=== PATIENT | female | born 1945 | race Caucasian/White ===

== ENCOUNTER 2018-02-17 08:49 | Outpatient (CLI) | payer MEDICARE ==
--- NOTE | 2018-02-17 11:07 | RAD ---
THERE VIEWS LUMBAR SPINE INCLUDING FLEXION AND EXTENSION VIEWS: Date: 02-17-18 History: Chronic low back. FINDINGS: Multilevel degenerative changes are seen throughout the lumbar spine with narrowing of the interverte bral disc spaces at all levels. Multilevel osteophytes are present. Prominent endplate degenerative c hanges at L1-2 level. Facet hypertrophic change is seen at multiple levels, greater in the lower lumb ar spine. There is grade I anterolisthesis of L5 on S1. No definitive abnormal translational motion i s seen, and degree of anterolisthesis measures approximately 6 mm. No additional level of subluxation is seen. The vertebral body heights are within normal limits. Vascular calcifications are seen in th e abdominal aorta. IMPRESSION: 1. Multilevel degenerative changes throughout the lumbar spine. 2. Grade I anterolisthesis or L5 on S1. 3. Vascular calcifications seen in the abdominal aorta. POS: [facility]
--- NOTE | 2018-02-17 11:53 | MRI ---
MRI LUMBAR SPINE WITHOUT CONTRAST: HISTORY: Chronic low back pain. Pain management is not helping. COMPARISON: None. TECHNIQUE: An MRI of the lumbar spine is performed without intravenous Gadolinium administration. Multisequenti al, multiplanar imaging is performed. FINDINGS: Straightening of normal cervical lordosis. There is T1 marrow signal hypointensity with associated T 2 and STIR hyperintensity involving the inferior aspect of L1 and the superior aspect of L3. Type I modic changes are favored. There is no significant STIR hyperintensity to suggest vertebral body abiel ma from fracture. No MRI evidence of a ligamentous injury. Straightening of the normal lumbar lordo sis is presumed to be due to patient position. Symmetric signal intensity of the psoas muscles. Appropriate signal intensity of the visualized sean d organs. The conus medullaris terminates at the inferior aspect of L1. There does appear to be a significant disk bulge/protrusion at the T11-T12 level, incompletely evalua hellen. T12-L1: No significant central canal stenosis. The neural foramina are patent. L1-L2: Desiccation with severe loss of disk space height. Broad-based disk bulge, ligamentum flavum thickening, and facet hypertrophy result in moderate central canal stenosis. The right neural viral en is patent. Moderate to severe left foraminal narrowing. L2-L3: Severe loss of disk space height. Broad-based disk bulge, ligamentum flavum thickening, and facet hypertrophy result in moderate central canal stenosis. Mild right and moderate left foraminal narrowing. L3-L4: Desiccation with severe loss of disk space height. Broad-based disk bulge, ligamentum flavum thickening, and facet hypertrophy result in moderate central canal stenosis. Moderate to severe rig ht and moderate to severe left neural foraminal narrowing. L4-L5: Desiccation with severe loss of disk space height. Broad-based disk bulge, ligamentum flavum thickening, and facet hypertrophy result in mild central canal stenosis. Moderate to severe right a nd mild left foraminal narrowing. L5-S1: Adequate disk hydration. Generalized disk bulge does not cause any significant stenosis of t he thecal sac. There is bilateral facet hypertrophy. The right neural foramen is patent. Mild left neural foraminal narrowing. There is 3.5 mm of anterolisthesis of L5 upon S1. IMPRESSION: Degenerative changes of the lumbar spine, as detailed above. POS: [facility]
== END 2018-02-17 08:50 | disposition home or self-care (01) ==
LOC: SCSMRI 08:49
PROVIDERS: ATTEND Neurological Surgery
DX: M47.26 Other spondylosis with radiculopathy, lumbar region (principal); M43.17 Spondylolisthesis, lumbosacral region; I70.0 Atherosclerosis of aorta
CPT/HCPCS: 72100; 72148

== ENCOUNTER 2018-11-17 10:37 | Inpatient (IN) | payer MEDICARE ==
[2018-11-16 13:41] VITALS: BMI 38.0
--- NOTE | 2018-11-16 20:54 | HP ---
HISTORY OF PRESENT ILLNESS: This is a 73-year-old female who reports to our office for evaluation of back pain. She states that this pain has been around for at least a year and a half when she slipped in the bathtub. She states that she has been more or less under control with physical therapy and injections; however, in the last 3 to 4 months, has been significantly worse and her last injection did not give her any relief. The patient states her pain is worse on the left side of her low back into her gluteal area. She denies radicular symptoms. No numbness or tingling. She states that it is hard for her to stand more than about 5 to 10 minutes without needing to sit or take a break. She states that she uses a shopping cart at the store and finds herself leaning over further and further as she continues shopping. This gives her some relief. When the patient sits, she feels better. She had a course of physical therapy last year. REVIEW OF SYSTEMS: Ten-point review of systems has been completed and is negative other than stated in the above HPI. PAST MEDICAL HISTORY: Hyperlipidemia, hypertension, type 2 diabetes, anxiety, arthritis, allergies, migraine. PAST SURGICAL HISTORY: Hysterectomy, knee replacements, gallbladder removal. FAMILY HISTORY: Father is , diagnosed with diabetes. Mother is , diagnosed with hypertension and cancer. Children are alive. SOCIAL HISTORY: The patient is a nonsmoker. MEDICATIONS: 1. Metformin. 2. Lisinopril. 3. Amlodipine. 4. Gabapentin. 5. Atorvastatin. 6. Fish oil. 7. Fenofibrate. 8. Meloxicam. 9. Vitamin D. 10. Glimepiride. 11. Tramadol. ALLERGIES: KEFLEX, CODEINE, CORTISONE AND NIASPAN. PHYSICAL EXAMINATION: CONSTITUTIONAL: A well-appearing, well-nourished, alert. RESPIRATIONS: Normal work of breathing on room air. NEUROLOGIC: Mental Status; oriented to person, place, and time. Normal attention span and concentration. Speech, spontaneous and fluent. Content appropriate. Normal fund of knowledge. Cranial nerves; grossly intact. Gait and station; gait and station are normal. Motor exam; there is normal strength in iliopsoas, quadriceps, hamstrings, anterior tibialis, EHL, gastroc, and toe flexors. Sensory exam, there is no dermatomal sensory loss in L1, L2, L3, L4, or S1. IMAGING DATA: MRI, stenosis at L1-L2, L2-L3, L3-4, L4-5, mild slip at L5-S1 without much stenosis there. Flexion-extension x-rays stable at L5-S1. ASSESSMENT AND PLAN: Spondylolisthesis, lumbar spinal stenosis with neurogenic claudication. Dr. Barrios has offered surgery, laminectomy L1 through L5 to prevent further neurologic deterioration. The patient states that she understands the risks and is willing to proceed. Job ID: [id number]
[2018-11-17] MEDS ORDERED: Clindamycin/D5W 900 mg/50 ml Premix Bag ONE (11:35)
[2018-11-17] MEDS ORDERED: Levofloxacin 500 mg/D5W 100 ml Premix Bag ONE (11:35)
[2018-11-17] MEDS ORDERED: Bupivacaine HCl 0.5%/Epinephrine 1:200,000/PF 30 ml Vial ONE (12:19)
[2018-11-17] MEDS ORDERED: Sodium Chloride 0.9% 10 ML ONE (12:19)
[2018-11-17] MEDS ORDERED: Thrombin 5000 UNITS/5 ML VIAL ONE (12:19)
[2018-11-17] MEDS ORDERED: Glycopyrrolate 0.2 MG/ML 5 ML SYRINGE ONE (12:53)
[2018-11-17] MEDS ORDERED: Rocuronium Bromide 10 MG/ML (10ML VIAL) ONE (12:53)
[2018-11-17] MEDS ORDERED: Lidocaine 1% PF 5 ML VIAL ONE (12:53)
[2018-11-17] MEDS ORDERED: PHENYLEPHRINE-NS 100 MCG/ML 10 ML SYRINGE ONE (12:53)
[2018-11-17] MEDS ORDERED: PROPOFOL 200 MG/20 ML VIAL ONE (12:53)
[2018-11-17] MEDS ORDERED: Dexamethasone 20 MG/5 ML VIAL ONE (12:53)
[2018-11-17] MEDS ORDERED: Fentanyl 100 MCG/2 ML VIAL ONE ×4 (13:03→19:26)
[2018-11-17] MEDS ORDERED: Phenylephrine HCL 10 MG/ML VIAL ONE (13:10)
[2018-11-17] MEDS ORDERED: Bisacodyl 10 MG SUPP PR PRN (17:12)
[2018-11-17] MEDS ORDERED: Acetaminophen 650 MG Suppository PR PRN (17:12)
[2018-11-17] MEDS ORDERED: Promethazine HCl 25 MG/ML VIAL IM PRN ×2 (17:12→17:30)
[2018-11-17] MEDS ORDERED: traMADol HCl 50 MG TAB PO PRN ×2 (17:12)
[2018-11-17] MEDS ORDERED: tiZANidine HCl 4 MG TAB PO PRN (17:12)
[2018-11-17] MEDS ORDERED: diphenhydrAMINE 50 MG/ML VIAL IVP PRN (17:12)
[2018-11-17] MEDS ORDERED: Acetaminophen 325 MG TAB PO PRN (17:12)
[2018-11-17] MEDS ORDERED: Milk Of Magnesia 30 ML UDCUP PO PRN (17:12)
[2018-11-17] MEDS ORDERED: Morphine 2 MG/ML SYRINGE SLOW IVP PRN (17:12)
[2018-11-17] MEDS ORDERED: Promethazine 25 MG TAB PO PRN (17:12)
[2018-11-17] MEDS ORDERED: SUGAMMADEX SODIUM 200 MG/2 ML VIAL ONE (17:12)
[2018-11-17] MEDS ORDERED: diphenhydrAMINE 25 MG CAP PO PRN (17:12)
[2018-11-17] MEDS ORDERED: Ondansetron PF 4 MG/2 ML Vial IVP PRN (17:12)
[2018-11-17] MEDS ORDERED: Mag-Al 1200 mg/1200 mg/30 ML UDCUP PO PRN (17:12)
[2018-11-17] MEDS ORDERED: HYDROmorphone 2 MG/ML VIAL SLOW IVP PRN (17:30)
[2018-11-17] MEDS ORDERED: Promethazine HCl 25 MG/ML VIAL SLOW IVP PRN (17:30)
[2018-11-17] MEDS ORDERED: Ondansetron HCl/PF 4 MG/2 ML Vial IVP PRN (17:30)
[2018-11-17] MEDS: Clindamycin/D5W 900 MG in Premix Bag 1 BAG IVPB SCH (20:11)
[2018-11-17] MEDS: metFORMIN 500 MG TAB PO SCH (20:11)
[2018-11-17] MEDS: Morphine 4 MG/ML VIAL SLOW IVP PRN ×2 (20:13→23:52)
[2018-11-17] MEDS: Sodium Chloride 0.9% 1,000 ML IV SCH (20:26)
[2018-11-17] MEDS ORDERED: Atorvastatin Calcium 40 MG TAB PO SCH (21:00)
[2018-11-17] MEDS ORDERED: Fenofibrate Nanocrystallized 145 MG TAB PO SCH (21:00)
[2018-11-18] MEDS: Sodium Chloride 0.9% 1,000 ML IV SCH (00:09)
--- NOTE | 2018-11-18 01:01 | OP ---
DATE OF PROCEDURE: 11/17/2018 SILO OPERATOR: Nica Landry PA-C PREOPERATIVE INDICATION: Treat pain and prevent neurological deterioration. PREOPERATIVE DIAGNOSIS: Multilevel lumbar stenosis with severe neurogenic claudication. POSTOPERATIVE DIAGNOSES: Multilevel lumbar stenosis with severe neurogenic claudication and right L2-L3 facet erosion of the dura. PROCEDURES PERFORMED: Decompressive laminectomy, medial facetectomy, foraminotomy, L1-L2, L2-L3, L3-L4, L4-L5; operating microscope; microsurgical repair of dura from bony erosion, right L2-L3. PREOP MEDICATION: Levaquin 500 mg IV and clindamycin 900 mg IV. DRAIN NUMBER: Zero. DRAIN TYPE: None. DESCRIPTION OF PROCEDURE: The patient was brought to the operating room. General endotracheal anesthesia was induced. The patient was positioned prone on gel-filled chest rolls and a lateral fluoro radiograph was used to plan our incision. The lumbar skin was sterilely prepped and draped. We opened with a 10-blade knife and controlled bleeding with bipolar and monopolar cautery. We used monopolar cautery to dissect through subcutaneous tissues to the thoracodorsal fascia. We incised the fascia in the midline and reflected the paraspinal muscles off the spinous process and lamina of L1, L2, L3, L4 and the top of L5. A lateral fluoro radiograph confirmed the levels upon which we were operating. We then used an Adson rongeur to remove the spinous processes of L1 to the top of L5. Using a 3-mm Kerrison rongeur, we fashioned a laminectomy down the midline. We widened our laminectomy defect by performing medial facetectomies and decompressed the lateral recess in the foramen and each of the interspaces. We carefully worked down the right side first and found that the L2-L3 facet joint was overgrown with bone spurs and was densely adherent to the dura. We left this for microsurgical decompression at the end. We moved down the left side and decompressed by performing medial facetectomies and foraminotomies over the exiting nerve roots, and once we had decompressed the lateral recess and foramina at L1-L2, L2-L3, L3-L4, L4-L5 bilaterally, we went back to the L2-L3 facet joint on the right side. The operative microscope was brought into the field. Under microscopic magnification and using microsurgical techniques, we carefully drilled away the medial portion of the facet joint until it was thin enough to use a 2-mm Kerrison rongeur. We disconnected the medial portion of the facet joint from the lateral portion until there was a free-floating piece of bone and osteophyte on the dura. Each time repeat under the bone, we saw arachnoid but no intact dura, the dura was densely adherent to the bone itself. We elected to resect the bone microsurgically with sharp micro scissors, then the dural defect left behind was about 7 mm in the craniocaudal direction, but only 2 to 3 mm in the mediolateral direction. A 6-0 Prolene was brought in the field. Using interrupted 6-0 Prolene sutures, we closed primarily. We administered 3 to 4 different Valsalva maneuvers and saw no CSF egress. We irrigated the entire wound copiously with bacitracin irrigation. We then reinforced our dural closure with DuraSeal tissue sealant. We treated the wound with vancomycin powder and we closed the wound in anatomical layers. We applied a sterile dressing. This was a clean case, no contamination. Job ID: [id number]
[2018-11-18] MEDS ORDERED: HumaLOG 300 UNITS/3 ML VIAL SC PRN ×2 (01:50)
[2018-11-18] MEDS ORDERED: Dextrose 50% Abboject 50 ML SYRINGE SLOW IVP PRN (01:50)
[2018-11-18] MEDS ORDERED: Dextrose 5% in Water 1,000 ML IV PRN (01:50)
--- NOTE | 2018-11-18 02:32 | CON ---
DATE OF CONSULTATION: 11/17/2018 TIME OF ASSESSMENT: 2200 hours. REASON FOR CONSULTATION: Medical management. HISTORY OF PRESENT ILLNESS: Ms. Walden is a 73-year-old woman, who has a history of chronic back pain following a fall within 1 year ago. She has undergone decompressive laminectomy, medial facetectomy, foraminotomy from L1 through L5 done by Dr. Barrios. This was done due to multilevel lumbar stenosis with severe neurogenic claudication. The patient had the procedure done earlier today and has been referred for medical management. She has a known history of hyperlipidemia, hypertension, type 2 diabetes mellitus, and anxiety. The patient states she has some pain in her back, which is to be expected and is finding difficult to stay awake. The patient states she has had the sensation of needing to urinate for the last hour, and states she is falling asleep and forgetting to let her nurse know. The patient also states she is somewhat reluctant and nervous about getting up for the first time, which is partially the reason why she has been waiting. She otherwise feels well and denies any complaints. Denies having any chest pain, palpitations, or shortness of breath. No headaches or dizziness. No abdominal pain or cramping. No nausea or vomiting. Overall, apart from the back pain, she is without any complaints. PAST MEDICAL HISTORY: 1. Hyperlipidemia. 2. Hypertension. 3. Type 2 diabetes mellitus. 4. Anxiety. 5. Arthritis. 6. History of migraines. PAST SURGICAL HISTORY: 1. Hysterectomy. 2. Bilateral knee replacements. 3. Cholecystectomy. 4. Lumbar laminectomy done today as mentioned above. FAMILY HISTORY: Her father is , but had a history of diabetes. Her mother is also and had history of hypertension and cancer. SOCIAL HISTORY: She denies any tobacco use, alcohol consumption, or illicit drug use. ALLERGIES: 1. CEPHALEXIN. 2. CORTISONE. 3. NIASPAN. 4. CODEINE. CURRENT MEDICATIONS: 1. Acetaminophen. 2. Amlodipine. 3. Aspirin. 4. Atorvastatin. 5. Unisom. 6. Estroven. 7. Fenofibrate. 8. Glimepiride. 9. Lisinopril. 10. Melatonin. 11. Metformin. 12. Multivitamin. 13. Tramadol. 14. CoQ10. PHYSICAL EXAMINATION: GENERAL: The patient appears well developed, well nourished, is in no acute distress. VITAL SIGNS: Temperature 98.7, pulse 93, respirations 20, O2 saturation 92% on room air, and blood pressure 164/76. HEENT: Normocephalic and atraumatic. Pupils are equal, round, reactive to light. Sclerae without icterus. Oropharynx is clear. NECK: Supple. LUNGS: Clear to auscultation bilaterally. CARDIAC: Regular rate and rhythm. ABDOMEN: Soft, nontender, nondistended. Normoactive bowel sounds present. EXTREMITIES: No lower leg swelling or edema. NEUROLOGIC: Alert and oriented x3. SKIN: Without rash or jaundice. INVESTIGATIONS: None. IMPRESSION AND PLAN: Ms. Walden is a very pleasant 73-year-old woman with lumbar spondylolisthesis and stenosis of the lumbar spine with neurogenic claudication, who was offered lumbar laminectomy as mentioned above. She had the procedure earlier today without any complications. She does have some mild discomfort and was just given morphine. She feels the need to urinate, but is nervous about getting up, therefore did not notify her nurse. I have notified her nurse, who will assist her, in getting out of bed. The patient is otherwise feeling very well without complaints. Blood pressure repeated in the 140 systolic. Her home medications have been reconciled. She has a she does have a history of diabetes mellitus. We have initiated an insulin sliding scale, and we will monitor blood glucose. We will obtain laboratory studies requested for the morning. Thank you for this consultation. We will continue to follow the patient with you. The patient's case was discussed with attending, who agrees upon care as described above. Job ID: [id number]
[2018-11-18] MEDS: Morphine 4 MG/ML VIAL SLOW IVP PRN (04:11)
[2018-11-18] MEDS: Clindamycin/D5W 900 MG in Premix Bag 1 BAG IVPB SCH (04:11)
[2018-11-18 05:11] LABS: #Lymphocytes 1.4 thou/uL (1.20-3.40); #Monocytes 1.3 thou/uL (0.11-0.59); #Neutrophils 7.4 thou/uL (1.40-6.50); %Basophils 0.2 % (0.0-1.0); %Eosinophils 0.2 % (0.0-10.0); %Monocytes 12.3 % (0.0-10.0); %Neutrophils 73.3 % (42.0-75.0); Hemoglobin 10.1 g/dL (12.0-16.0); Mean Corpuscular HGB CONC 32.7 g/dL (32.0-36.0); Mean Corpuscular Hemoglobin 28.2 pg (27.0-31.0); Mean Corpuscular Volume 86.1 fL (78.0-98.0); Mean Platelet Volume 7.7 fL (7.4-10.4); Platelet Count 367 thou/uL (130-400); RBC Distribution Width 13.9 % (11.5-14.5); Red Blood Cell (RBC) Count 3.57 mill/uL (4.20-5.40); White Blood Cell (WBC) Count 10.2 thou/uL (4.8-10.8)
[2018-11-18 05:24] LABS: Anion Gap 10 mmol/L (10-20); BUN (Urea Nitrogen) 13 mg/dL (9.8-20.1); Calc. Creatinine Clearance 67 mL/min (70-130); Calcium 8.8 mg/dL (7.8-10.44); Carbon Dioxide 26 mmol/L (23-31); Chloride 101 mmol/L (98-107); Estimated GFR-MDRD 53; Glucose 117 mg/dL (83-110); Potassium 4.5 mmol/L (3.5-5.1); Sodium 132 mmol/L (136-145)
--- NOTE | 2018-11-18 07:15 | PRG ---
DATE OF SERVICE: 11/18/2018 I saw Ms. Walden in her hospital room this morning. She is 1 day out from a long segment lumbar laminectomy in which dural repair was necessary due to erosion of her dura from an overgrown facet joint. We aimed to keep her flat in bed overnight, but she told me she got out of bed twice overnight and went to the bathroom. She did not get a significant headache and there has been no report of CSF draining. Vitals have been stable. Her neurological examination is reassuring and I think Ms. Walden will be ready for discharge today if she proves to the nurses by lunchtime that she is independent for activities of daily living. We went over home going activity restrictions, followup arrangements and wound care. Job ID: [id number]
[2018-11-18 08:50] VITALS: TEMP 98.6
[2018-11-18] MEDS ORDERED: Lisinopril 20 MG TAB PO SCH (09:00)
[2018-11-18] MEDS ORDERED: Amlodipine 10 MG TAB PO SCH (09:00)
[2018-11-18] MEDS ORDERED: Glimepiride 1 MG TAB PO SCH (09:00)
[2018-11-18] MEDS: metFORMIN 500 MG TAB PO SCH (09:21)
[2018-11-18 12:15] VITALS: BP 145/78
== END 2018-11-18 13:10 | disposition home or self-care (01) | DRG 520 ==
LOC: SDC 10:37 → SURG B 18:02
PROVIDERS: ADMIT Neurological Surgery; ATTEND Neurological Surgery
PROC: 00QT0ZZ Repair Spinal Meninges, Open Approach (ICD-10-PCS; principal; 2018-11-17)
PROC: 01NB0ZZ Release Lumbar Nerve, Open Approach (ICD-10-PCS; 2018-11-17)
PROC: 0QB00ZZ Excision of Lumbar Vertebra, Open Approach (ICD-10-PCS; 2018-11-17)
DX: M48.062 Spinal stenosis, lumbar region with neurogenic claudication (principal); M43.16 Spondylolisthesis, lumbar region; E78.5 Hyperlipidemia, unspecified; E11.9 Type 2 diabetes mellitus without complications; F41.9 Anxiety disorder, unspecified; M19.90 Unspecified osteoarthritis, unspecified site; G96.19 Other disorders of meninges, not elsewhere classified; Z96.653 Presence of artificial knee joint, bilateral; Z90.710 Acquired absence of both cervix and uterus; Z90.49 Acquired absence of other specified parts of digestive tract; Z88.5 Allergy status to narcotic agent; Z88.8 Allergy status to other drugs, medicaments and biological substances; I10 Essential (primary) hypertension; G43.909 Migraine, unspecified, not intractable, without status migrainosus
CPT/HCPCS: 36415; 36416; 76000; 80048; 85025; 93005; 93010; J0670; J1956; J2270; J2370; J2405; J3010; J3370; J3490

== ENCOUNTER 2018-11-19 07:21 | Inpatient (IN) | payer MEDICARE ==
[2018-11-19] MEDS ORDERED: Ondansetron PF 4 MG/2 ML Vial ONE (07:52)
[2018-11-19] MEDS ORDERED: Morphine 4 MG/ML VIAL ONE (07:52)
--- NOTE | 2018-11-19 07:56 | RAD ---
EXAM: Portable chest PROVIDED CLINICAL HISTORY: Fever COMPARISON: None FINDINGS: Cardiac and mediastinal silhouette is within normal limits. No focal consolidation, pleural fluid or pneumothorax evident. IMPRESSION: No evidence for an acute cardiopulmonary process.
[2018-11-19 08:01] LABS: #Eosinphils 0.3 thou/uL (0.0-0.7); #Lymphocytes 1.1 thou/uL (1.20-3.40); #Monocytes 1.4 thou/uL (0.11-0.59); #Neutrophils 8.1 thou/uL (1.40-6.50); %Basophils 0.4 % (0.0-1.0); %Eosinophils 2.4 % (0.0-10.0); %Lymphocytes 10.3 % (21.0-51.0); %Monocytes 12.8 % (0.0-10.0); %Neutrophils 74.1 % (42.0-75.0); Hemoglobin 10.7 g/dL (12.0-16.0); Mean Corpuscular HGB CONC 33.4 g/dL (32.0-36.0); Mean Corpuscular Volume 83.8 fL (78.0-98.0); Mean Platelet Volume 7.4 fL (7.4-10.4); Platelet Count 337 thou/uL (130-400); RBC Distribution Width 13.9 % (11.5-14.5); Red Blood Cell (RBC) Count 3.81 mill/uL (4.20-5.40)
[2018-11-19 08:26] LABS: ALT (SGPT) 19 U/L (8-55); AST (SGOT) 19 U/L (5-34); Albumin 4.2 g/dL (3.4-4.8); Alkaline Phosphatase 43 U/L (40-150); Anion Gap 12 mmol/L (10-20); BUN (Urea Nitrogen) 13 mg/dL (9.8-20.1); Bilirubin, Total 0.5 mg/dL (0.2-1.2); Calc. Creatinine Clearance 0 mL/min (70-130); Calcium 9.3 mg/dL (7.8-10.44); Carbon Dioxide 22 mmol/L (23-31); Chloride 99 mmol/L (98-107); Estimated GFR-MDRD 58; Globulin 2.2 g/dL (2.4-3.5); Glucose 127 mg/dL (83-110); Potassium 4.1 mmol/L (3.5-5.1); Protein, Total 6.4 g/dL (6.0-8.3); Sodium 129 mmol/L (136-145)
[2018-11-19] MEDS ORDERED: Metoclopramide HCl 10 MG/2 ML VIAL ONE (08:51)
[2018-11-19] MEDS ORDERED: Mag-Al 1200 mg/1200 mg/30 ML UDCUP PO PRN (09:15)
[2018-11-19] MEDS ORDERED: HYDROcodone/Acetaminophen 10/325 mg Tablet PO PRN (09:15)
[2018-11-19] MEDS ORDERED: tiZANidine HCl 4 MG TAB PO PRN (09:15)
[2018-11-19] MEDS ORDERED: Promethazine 25 MG TAB PO PRN (09:15)
[2018-11-19] MEDS ORDERED: Acetaminophen 325 MG TAB PO PRN ×2 (09:15→12:50)
[2018-11-19] MEDS ORDERED: Milk Of Magnesia 30 ML UDCUP PO PRN (09:15)
[2018-11-19] MEDS ORDERED: Promethazine HCl 25 MG/ML VIAL IM PRN (09:15)
[2018-11-19] MEDS ORDERED: traMADol HCl 50 MG TAB PO PRN ×2 (09:15→12:49)
[2018-11-19] MEDS ORDERED: Ondansetron PF 4 MG/2 ML Vial IVP PRN (09:15)
[2018-11-19] MEDS ORDERED: diphenhydrAMINE 50 MG/ML VIAL ONE (09:17)
[2018-11-19] MEDS ORDERED: Fentanyl 100 MCG/2 ML VIAL ONE (10:16)
[2018-11-19] MEDS: HYDROcodone/Acetaminophen 10/325 mg Tablet PO PRN ×3 (11:48→20:10)
[2018-11-19] MEDS: Sodium Chloride 0.9% 1,000 ML IV SCH (11:50)
[2018-11-19 11:59] VITALS: BMI 42.2
[2018-11-19] MEDS ORDERED: hydrALAZINE 20 MG/ML VIAL SLOW IVP PRN (12:42)
[2018-11-19] MEDS ORDERED: Dextrose 50% Abboject 50 ML SYRINGE SLOW IVP PRN (12:43)
[2018-11-19] MEDS ORDERED: Dextrose 5% in Water 1,000 ML IV PRN (12:43)
[2018-11-19] MEDS ORDERED: Amlodipine 10 MG TAB PO SCH (12:45)
[2018-11-19] MEDS ORDERED: Lisinopril 20 MG TAB PO SCH ×2 (12:45→21:00)
--- NOTE | 2018-11-19 12:46 | PDOC.HOSPP ---
- Subjective Encounter Date: 11/19/18 Encounter Time: 12:44 Subjective: Patient seen and examined for med mngt. No CP/SOB. Follow Dr Angulo. - Objective Vital Signs & Weight: Vital Signs (12 hours) Temp Pulse Resp BP Pulse Ox 11/19/18 11:16 98.3 F 103 H 22 H 174/82 H 97 Weight Weight 216 lb 0.848 oz Result Diagrams: 11/19/18 07:54 11/19/18 07:54 Hospitalist ROS - Review of Systems Respiratory: denies: cough, dry, shortness of breath, hemoptysis, SOB with excertion, pleuritic pain, sputum, wheezing, other Cardiovascular: denies: chest pain, palpitations, orthopnea, paroxysmal noc. dyspnea, edema, light headedness, other - Medication Medications: Active Medications Generic Name Dose Route Start Last Admin Trade Name Freq PRN Reason Stop Dose Admin Hydrocodone Bitart/Acetaminophen 2 tab 11/19/18 09:15 11/19/18 11:48 [place] 10/325 PO 2 tab Q4H PRN Administration Moderate Pain (4-6) Sodium Chloride 1,000 mls @ 75 mls/hr 11/19/18 09:15 11/19/18 11:50 Normal Saline 0.9% IV 1,000 mls .[id number] CHANI Administration - Exam General - other findings: Pt in distress due to back pain Neck: supple, no JVD Heart: RRR, no gallops, no rubs Respiratory: CTAB, no rales Gastrointestinal: soft, non-tender, non-distended, normal bowel sounds Extremities: no edema Psychiatric: normal affect, A&O x 3 Hosp A/P (1) Hyponatremia Code(s): E87.1 - HYPO-OSMOLALITY AND HYPONATREMIA Status: Acute (2) HTN (hypertension) Code(s): I10 - ESSENTIAL (PRIMARY) HYPERTENSION Status: Acute (3) HLD (hyperlipidemia) Code(s): E78.5 - HYPERLIPIDEMIA, UNSPECIFIED Status: Acute (4) DM2 (diabetes mellitus, type 2) Status: Acute (5) Morbid obesity with BMI of 40.0-44.9, adult Code(s): E66.01 - MORBID (SEVERE) OBESITY DUE TO EXCESS CALORIES; Z68.41 - BODY MASS INDEX (BMI) 40.0-44.9, ADULT Status: Acute (6) CKD (chronic kidney disease) stage 3, GFR 30-59 ml/min Code(s): N18.3 - CHRONIC KIDNEY DISEASE, STAGE 3 (MODERATE) Status: Chronic - Plan DVT proph w/SCDs Resume Amlodipine/Lisinopril/Statins Hold Metformin/Glimepiride Add sliding scale BMP in AM AM labs Full code. DPOA - family
--- NOTE | 2018-11-19 12:58 | HP ---
HISTORY OF PRESENT ILLNESS: The patient is a 73-year-old female with a past medical history of type 2 diabetes, hypertension, hyperlipidemia, found to have lumbar stenosis, who underwent L1 to L5 laminectomy on 11/17/2018. Following the surgery, she was transitioned to the Med/Surg floor, where her pain was well controlled with p.o. medication, she mobilized appropriately and was then discharged to home yesterday on 11/18/2018. The patient reports over the first day at home, she had progressive increase in her back pain and development of some diffuse left leg pain and new postural headaches. She reports a subjective fever at home. She came to the emergency department for further evaluation of these worsening symptoms. At that time, she was found to be afebrile, but did have a slightly increased white blood cell count. Neurosurgery was consulted for further evaluation and management of the patient. I visited with the patient at the bedside. She reports that her pain is primarily in the back and is making her difficult to ambulate secondary to this pain. She denies any leg weakness, numbness, or bowel or bladder issues. PAST MEDICAL HISTORY: Type 2 diabetes, hypertension, and hyperlipidemia. PAST SURGICAL HISTORY: L1 to L5 laminectomy, bilateral knee surgeries, foot surgery, cholecystectomy, and hysterectomy. SOCIAL HISTORY: The patient lives at home with her . She does not smoke, drink, or use any drugs. ALLERGIES: SHE IS ALLERGIC TO CEPHALEXIN, CODEINE, CORTISONE, NIACIN, AND NIASPAN. REVIEW OF SYSTEMS: Per HPI. PHYSICAL EXAMINATION: GENERAL: The patient is resting comfortably in the bed, in no acute distress. VITAL SIGNS: Blood pressure is 157/68, pulse is 83, respiratory rate is 18, temperature is 98.7, and she is 93% on room air. HEENT: Head; normocephalic, atraumatic. Eyes; PERRLA. Extraocular movements intact. ENT; oral mucosa is pink, intact, and moist. She has normal voice. NECK: Nontender to palpation. Free active range of motion. No meningismus or nuchal rigidity. CARDIAC: Regular rate and rhythm. PULMONARY: Symmetric chest expansion. No evidence of dyspnea. MUSCULOSKELETAL: Free active range of motion of all extremities. No focal motor weakness is appreciated. BACK: Her incision is clean, dry, and intact with no evidence of CSF drainage. NEURO: A and O x4. No focal neurologic deficits are appreciated. ASSESSMENT AND PLAN: This is a 73-year-old female, status post L1 to L5 laminectomy on 11/17/2018. Reviewing Dr. Barrios's notes, there was a small dural tear, which was repaired intraoperatively. The patient has now developed postural headaches. Her incision remains dry and intact with no evidence of CSF drainage. She had reported subjective fever overnight last night, but has been afebrile here. Her white count is slightly elevated and we will continue to monitor with repeat labs. I have also sent a set of blood cultures as well as CRP and sed rate. We will also check urinalysis with culture. Her chest x-ray was negative for any acute process. I have discussed the case with the hospitalist, who will assist with medical management of this patient and will be admitted to the Med/Surg for her further management. Job ID: [id number]
[2018-11-19 15:06] LABS: Bacteria/HPF None Seen HPF (None Seen); Bilirubin Negative (Negative); Blood, Urine Negative (Negative); Clarity Clear (Clear); Glucose, Urine (Dipstick) Normal (Negative); Leukocyte 25 Leu/uL (Negative); Nitrite Negative (Negative); Protein, Urine (Dipstick) Negative (Neg-Trace); RBC/HPF 0-3 HPF (0-3); Squamous Epithelial 0-3 HPF (0-3); Urobilinogen Normal mg/dL (Less than 2)
[2018-11-19 15:10] LABS: Urine Culture Reflex Yes Yes
[2018-11-19] MEDS: Morphine 2 MG/ML SYRINGE SLOW IVP PRN ×3 (15:11→19:31)
[2018-11-19] MEDS: tiZANidine HCl 4 MG TAB PO PRN (19:31)
[2018-11-19] MEDS: Atorvastatin Calcium 40 MG TAB PO SCH (19:31)
[2018-11-19] MEDS: Senokot S 8.6-50 MG TAB PO SCH (19:31)
[2018-11-20] MEDS: Sodium Chloride 0.9% 1,000 ML IV SCH ×2 (01:22→12:37)
[2018-11-20] MEDS: HYDROcodone/Acetaminophen 10/325 mg Tablet PO PRN ×3 (01:24→09:31)
[2018-11-20 03:57] LABS: #Eosinphils 0.3 thou/uL (0.0-0.7); #Lymphocytes 1.5 thou/uL (1.20-3.40); #Monocytes 1.3 thou/uL (0.11-0.59); #Neutrophils 8.1 thou/uL (1.40-6.50); %Basophils 0.2 % (0.0-1.0); %Eosinophils 2.8 % (0.0-10.0); %Lymphocytes 13.2 % (21.0-51.0); %Monocytes 11.8 % (0.0-10.0); Hemoglobin 9.8 g/dL (12.0-16.0); Mean Corpuscular HGB CONC 32.7 g/dL (32.0-36.0); Mean Corpuscular Hemoglobin 28.4 pg (27.0-31.0); Mean Corpuscular Volume 86.7 fL (78.0-98.0); Mean Platelet Volume 7.5 fL (7.4-10.4); Platelet Count 326 thou/uL (130-400); RBC Distribution Width 13.9 % (11.5-14.5); Red Blood Cell (RBC) Count 3.45 mill/uL (4.20-5.40); White Blood Cell (WBC) Count 11.2 thou/uL (4.8-10.8)
[2018-11-20 04:13] LABS: Anion Gap 10 mmol/L (10-20); BUN (Urea Nitrogen) 11 mg/dL (9.8-20.1); Calc. Creatinine Clearance 86 mL/min (70-130); Calcium 8.8 mg/dL (7.8-10.44); Carbon Dioxide 22 mmol/L (23-31); Chloride 103 mmol/L (98-107); Estimated GFR-MDRD 63; Glucose 119 mg/dL (83-110); Magnesium 1.6 mg/dL (1.6-2.6); Potassium 4.1 mmol/L (3.5-5.1); Sodium 131 mmol/L (136-145)
[2018-11-20] MEDS: Morphine 2 MG/ML SYRINGE SLOW IVP PRN ×4 (07:34→13:17)
[2018-11-20] MEDS: Amlodipine 10 MG TAB PO SCH (07:48)
[2018-11-20] MEDS: tiZANidine HCl 4 MG TAB PO PRN (07:48)
[2018-11-20] MEDS: Multivit, Therapeutic 1 TAB PO SCH (07:49)
[2018-11-20] MEDS: Lisinopril 20 MG TAB PO SCH (07:49)
[2018-11-20] MEDS: Senokot S 8.6-50 MG TAB PO SCH ×2 (07:52→20:52)
[2018-11-20] MEDS: Ubidecarenone 50 MG CAP PO SCH (07:52)
[2018-11-20] MEDS ORDERED: Magnesium 2 GM/50 ML 2 GM in Premix Bag 1 BAG IVPB SCH (11:15)
--- NOTE | 2018-11-20 12:55 | PDOC.HOSPP ---
- Subjective Encounter Date: 11/20/18 Encounter Time: 11:00 Subjective: Patient seen and examined for med mngt. Back pain +. No new complaints. No overnight events - Objective Vital Signs & Weight: Vital Signs (12 hours) Temp Pulse Resp BP BP Pulse Ox 11/20/18 08:00 99 11/20/18 07:54 98.2 F 82 162/84 H 99 11/20/18 07:49 162/84 H 11/20/18 07:48 82 162/84 H 11/20/18 03:20 98.4 F 82 16 145/77 H 99 Weight Weight 216 lb 0.848 oz I&O: 11/19/18 11/20/18 11/21/18 06:59 06:59 06:59 Intake Total 900 Balance 900 Result Diagrams: 11/20/18 03:30 11/20/18 03:30 Additional Labs: Accuchecks 11/20/18 11/20/18 11/19/18 11:33 05:26 20:13 POC Glucose 105 117 H 135 H 11/19/18 15:55 POC Glucose 140 H Hospitalist ROS - Review of Systems Respiratory: denies: cough, dry, shortness of breath, hemoptysis, SOB with excertion, pleuritic pain, sputum, wheezing, other Cardiovascular: denies: chest pain, palpitations, orthopnea, paroxysmal noc. dyspnea, edema, light headedness, other - Medication Medications: Active Medications Generic Name Dose Route Start Last Admin Trade Name Freq PRN Reason Stop Dose Admin Hydrocodone Bitart/Acetaminophen 2 tab 11/19/18 09:15 11/20/18 09:31 [place] 10/325 PO 2 tab Q4H PRN Administration Moderate Pain (4-6) Amlodipine Besylate 10 mg 11/20/18 09:00 11/20/18 07:48 Norvasc PO 10 mg DAILY CHANI Administration Atorvastatin Calcium 40 mg 11/19/18 21:00 11/19/18 19:31 Lipitor PO 40 mg HS CHANI Administration Coenzyme Q10 200 mg 11/20/18 09:00 11/20/18 07:52 Coenzyme Q10 PO Not Given DAILY CHANI Magnesium Sulfate 2 gm/ Device 50 mls @ 50 mls/hr 11/20/18 11:15 11/20/18 12: 30 IVPB 11/20/18 13:15 50 mls NOW CHANI Administration Sodium Chloride 1,000 mls @ 40 mls/hr 11/20/18 11:15 11/20/18 12:37 Normal Saline 0.9% IV 1,000 mls .Q24H CHANI Administration Lisinopril 20 mg 11/20/18 09:00 11/20/18 07:49 Zestril PO 20 mg DAILY CHANI Administration Morphine Sulfate 2 mg 11/19/18 09:15 11/20/18 12:28 Morphine SLOW IVP 2 mg Q1H PRN Administration Moderate Breakthrough Pain Multivitamins 1 tab 11/20/18 09:00 11/20/18 07:49 Theragran PO Not Given DAILY CHANI Senna/Docusate Sodium 1 tab 11/19/18 21:00 11/20/18 07:52 Senokot S PO Not Given BID CHANI Tizanidine HCl 4 mg 11/19/18 12:49 11/20/18 07:48 Zanaflex PO 4 mg TID PRN Administration Muscle Spasm - Exam General - other findings: Pt in distress due to pain Heart: RRR, no rubs Respiratory: CTAB, no rales, no ronchi Gastrointestinal: soft, non-tender, normal bowel sounds Extremities: no edema Neurological: no new deficit Psychiatric: A&O x 3 Hosp A/P (1) Hyponatremia Code(s): E87.1 - HYPO-OSMOLALITY AND HYPONATREMIA Status: Acute (2) HTN (hypertension) Code(s): I10 - ESSENTIAL (PRIMARY) HYPERTENSION Status: Acute (3) HLD (hyperlipidemia) Code(s): E78.5 - HYPERLIPIDEMIA, UNSPECIFIED Status: Acute (4) DM2 (diabetes mellitus, type 2) Status: Chronic Qualifiers: Chronic kidney disease stage: stage 3 (moderate) (5) Morbid obesity with BMI of 40.0-44.9, adult Code(s): E66.01 - MORBID (SEVERE) OBESITY DUE TO EXCESS CALORIES; Z68.41 - BODY MASS INDEX (BMI) 40.0-44.9, ADULT Status: Acute (6) Hypomagnesemia Code(s): E83.42 - HYPOMAGNESEMIA Status: Acute - Plan plan discussed w/ family Replace Magnessium Sodium improving Resume Amlodipine/Lisinopril/Statins Metformin/Glimepiride on hold - Will resume when tolerating PO well Cont sliding scale
[2018-11-20] MEDS ORDERED: Morphine 2 MG/ML SYRINGE SLOW IVP PRN (13:38)
[2018-11-20] MEDS ORDERED: Morphine 4 MG/ML VIAL SLOW IVP PRN (13:39)
[2018-11-20] MEDS ORDERED: diphenhydrAMINE 50 MG/ML VIAL IM PRN (13:44)
[2018-11-20] MEDS ORDERED: Ondansetron PF 4 MG/2 ML Vial IVP PRN (13:44)
[2018-11-20] MEDS ORDERED: Naloxone HCl 0.4 mg/ml Vial IV PRN (13:44)
[2018-11-20] MEDS ORDERED: Zolpidem Tartrate 5 MG TAB PO PRN (13:44)
[2018-11-20] MEDS ORDERED: diphenhydrAMINE 50 MG/ML VIAL IVP PRN (13:44)
[2018-11-20] MEDS ORDERED: Promethazine HCl 25 MG/ML VIAL IM PRN (13:44)
[2018-11-20] MEDS ORDERED: Communication Order-Pharmacy FS SCH (13:45)
--- NOTE | 2018-11-20 13:52 | PRG ---
DATE OF SERVICE: 11/20/2018 SUBJECTIVE: Ms. Walden is today at the bedside. She continues to complain of severe back pain that is only helped slightly by p.r.n. morphine and [place]. She denies any pain, numbness, or tingling in her legs. She denies any issues with her bowel or bladder. She continues to have constant headache, but this has significantly worsened with sitting or standing. She is unable to stand as well due to severe back pain. Her labs today are white count is 11.2, which appears stable from yesterday. Her urinalysis was negative for evidence of infection, and her chest x-ray was also negative for any acute cardiopulmonary process. The patient is lying. She appears uncomfortable. She is tender around the incision, it is not red, swollen. It is clean, dry, and intact with no evidence of any drainage. She has good range of motion of all extremities. No focal motor weakness is appreciated on my exam. Unfortunately, the patient continues to have severe back pain and postural headache. There continues to be no obvious CSF drainage from her wound. We will plan to consult anesthesia for TECHNICIAN TRAINEE for assistance in management of pain. Physical Therapy is currently at the bedside, working with the patient in the bed. I anticipate possible need for inpatient rehabilitation depending on her progress. Job ID: [id number] MTDD
[2018-11-20] MEDS: fentaNYL Citrate/PF 2,000 MCG in Sodium Chloride 0.9% 60 ML IV PRN (14:35)
[2018-11-20] MEDS: Dexamethasone 4 mg/ml Vial SLOW IVP SCH ×2 (14:56→20:53)
--- NOTE | 2018-11-20 15:51 | PRG ---
DATE OF SERVICE: SUBJECTIVE: The patient is seen and examined. I agree with Nevaeh Mari's evaluation on 11/19/2018. The patient is a 73-year-old woman, who on the underwent L1 through L5 laminectomy and she was discharged on the . Overnight on the and the morning of the , she began to develop significant increase in low back pain as well as postural headache. There was a report of fever at home, but there has been no fever in the hospital. Since admission, the postural headache has improved, but she is complaining of severe back pain. She has no manifestations in the legs and no neurologic abnormalities in the legs. Her wound was inspected and is dry. There is no evidence of distention of the wound. LABORATORY DATA: White count is 11, and she has been afebrile. She is modestly hyponatremic. IMPRESSION AND PLAN: Readmission for postural headache and exacerbation of back pain. We will try to manage this medically. This has been a challenge. We will ask for Anesthesia assistance with this. If things do not improve by tomorrow, she may ultimately require imaging. There are no manifestations of infection at this time. Discussed with the patient and her . Job ID: [id number]
[2018-11-20] MEDS: Famotidine/PF 20 mg/2ml Vial SLOW IVP SCH (20:52)
[2018-11-20] MEDS: Atorvastatin Calcium 40 MG TAB PO SCH (20:52)
[2018-11-20] MEDS: Ketorolac Tromethamine 30 MG/ML VIAL IVP PRN (20:53)
[2018-11-21] MEDS: Insulin Regular 300 UNITS/3 ML VIAL SC PRN ×5 (00:53→20:43)
[2018-11-21] MEDS: metFORMIN 500 MG TAB PO SCH ×2 (08:08→18:28)
[2018-11-21] MEDS: Senokot S 8.6-50 MG TAB PO SCH ×2 (08:11→20:25)
[2018-11-21] MEDS: Amlodipine 10 MG TAB PO SCH (08:11)
[2018-11-21] MEDS: Lisinopril 20 MG TAB PO SCH (08:11)
[2018-11-21] MEDS: Famotidine/PF 20 mg/2ml Vial SLOW IVP SCH ×2 (08:12→20:26)
[2018-11-21] MEDS: Dexamethasone 4 mg/ml Vial SLOW IVP SCH ×3 (08:12→20:26)
[2018-11-21] MEDS: Multivit, Therapeutic 1 TAB PO SCH (08:13)
[2018-11-21] MEDS: Ubidecarenone 50 MG CAP PO SCH (08:14)
[2018-11-21] MEDS: Ketorolac Tromethamine 30 MG/ML VIAL IVP PRN (08:16)
--- NOTE | 2018-11-21 08:23 | PRG ---
DATE OF SERVICE: 11/21/2018 I saw Hermila Walden in her hospital room this morning. She was discharged 1 day after operation on . She was home Wednesday evening and she was doing well and walking independently. From the nighttime Wednesday through Wednesday, things got worse with development of a postural headache and back pain. She needed to be readmitted for pain control. Multiple cultures have been done. Her wound has looked excellent. The T-max in the hospital since her readmission is 99.8 degrees Fahrenheit and that was at 7:45 p.m. yesterday. Blood pressures have ranged from 140s to 170s. Other vital signs have been stable. On examination, the wound is well approximated, dry, and there is no evidence of fluid collection. There is no dermatomal sensory loss. Has excellent strength in the iliopsoas, the quadriceps, the hamstrings, the anterior tib, the EHL, the gastroc, and the toe flexors. Our plan for Ms. Walden is to slowly mobilize today. I would like upright, AP and lateral views of lumbar spine. We will check to make sure that our lumbar decompression did not result in any instability or development of the spondylolisthesis. I will ask Physical Therapy to begin working with her on sitting up. A log roll this morning and sitting at bedside might be their goal for the a.m. whereas bearing weight and standing and perhaps taking a few steps would be a goal for the afternoon. I rarely suggest bracing, but a corset with stays or a LSO brace could offer her some support for the first week or two, but I would not use it any longer than that. I am not concerned with wound infection as it is much too early for that to be an issue. She seems to think her postural headache has resolved, as she was attempting to sit up yesterday, she did not have the same head pain she had Wednesday night and Wednesday morning, but she did feel off balanced. If she has recurrence of that postural headache, we will scan the brain later today. Job ID: [id number]
[2018-11-21] MEDS: Glimepiride 1 MG TAB PO SCH (11:31)
[2018-11-21] MEDS: Sodium Chloride 0.9% 1,000 ML IV SCH (11:52)
--- NOTE | 2018-11-21 17:27 | RAD ---
TWO VIEWS LUMBAR SPINE: HISTORY: Pain. Surgery. COMPARISON: 02/17/2018 FINDINGS: AP and lateral view of the lumbar spine demonstrate mild rightward curvature of the upper thoracic sp ine and upper lumbar spine and mild leftward curvature of the lower lumbar spine. There are laminectomy defects at L1, L2, L3, L4 and possibly L5. Posterior element hypertrophy at L4-L5 and L5- S1. On the lateral projection, there is stable spondylolisthesis, loss of disc space height, endplate scl erosis and osteophyte formation. No evidence of fracture. The greatest degree of anterolisthesis at L5-S1 (6 mm). Previous, there was 6.4 mm of anterolisthesis of L5 upon S1. Midline skin alysia IMPRESSION: 1. Findings compatible with multilevel laminectomy defects. No fracture. 2. Stable degenerative disc disease, posterior element hypertrophy and spondylolisthesis. Transcribed Date/Time: 11/21/2018 6:04 PM
[2018-11-21] MEDS: Atorvastatin Calcium 40 MG TAB PO SCH (20:26)
[2018-11-21] MEDS: fentaNYL Citrate/PF 2,000 MCG in Sodium Chloride 0.9% 60 ML IV PRN (20:27)
--- NOTE | 2018-11-21 22:16 | PDOC.HOSPP ---
- Subjective Encounter Date: 11/21/18 Encounter Time: 07:30 Subjective: Patient seen and examined for med mngt. Pain controlled with CLINICAL DOCUMENTATION MANAGER. No CP or SOB. No new complaints. No overnight events - Objective Vital Signs & Weight: Vital Signs (12 hours) Temp Pulse Resp BP Pulse Ox 11/21/18 20:00 98.3 F 90 16 163/82 H 94 L 11/21/18 14:56 98.5 F 90 16 165/85 H 94 L 11/21/18 10:45 98.4 F 83 22 H 148/83 H 92 L Weight Weight 216 lb 0.848 oz I&O: 11/20/18 11/21/18 11/22/18 06:59 06:59 06:59 Intake Total 900 2230 1430 Output Total 600 300 Balance 900 1630 1130 Result Diagrams: 11/20/18 03:30 11/20/18 03:30 Additional Labs: Accuchecks 11/21/18 11/21/18 11/21/18 20:44 15:01 11:21 POC Glucose 174 H 174 H 164 H 11/21/18 11/20/18 05:50 23:11 POC Glucose 164 H 163 H Hospitalist ROS - Review of Systems Cardiovascular: denies: chest pain, palpitations, orthopnea, paroxysmal noc. dyspnea, edema, light headedness, other Gastrointestinal: denies: nausea, vomiting, abdominal pain, diarrhea, constipation, melena, hematochezia, other - Medication Medications: Active Medications Generic Name Dose Route Start Last Admin Trade Name Freq PRN Reason Stop Dose Admin Acetaminophen 650 mg 11/19/18 12:50 11/20/18 20:51 Tylenol PO 650 mg Q4H PRN Administration Headache/Fever or Mild Pain Amlodipine Besylate 10 mg 11/20/18 09:00 11/21/18 08:11 Norvasc PO 10 mg DAILY CHANI Administration Atorvastatin Calcium 40 mg 11/19/18 21:00 11/21/18 20:26 Lipitor PO 40 mg HS CHANI Administration Coenzyme Q10 200 mg 11/20/18 09:00 11/21/18 08:14 Coenzyme Q10 PO Not Given DAILY CHANI Dexamethasone 4 mg 11/20/18 15:00 11/21/18 20:26 Decadron SLOW IVP 4 mg TID CHANI Administration Famotidine 10 mg 11/20/18 21:00 11/21/18 20:26 Pepcid SLOW IVP 10 mg BID CHANI Administration Glimepiride 1 mg 11/21/18 08:00 11/21/18 11:31 Amaryl PO 1 mg QAM-WM CHANI Administration Sodium Chloride 1,000 mls @ 40 mls/hr 11/20/18 11:15 11/21/18 11:52 Normal Saline 0.9% IV 1,000 mls .Q24H CHANI Administration Fentanyl Citrate 2,000 mcg/ 100 mls @ 0 mls/hr 11/20/18 13:44 11/21/18 20:27 Sodium Chloride IV 100 mls INF PRN Administration Pain As Directed Insulin Human Regular 0 units 11/19/18 12:43 11/21/18 20:43 Humulin R SC 2 unit .MILD SLIDING SCALE PRN Administration Mild Correctional Scale Ketorolac Tromethamine 15 mg 11/20/18 13:44 11/21/18 08:16 Toradol IVP 11/23/18 13:45 15 mg Q6H PRN Administration Moderate Pain (4-6) Lisinopril 20 mg 11/20/18 09:00 11/21/18 08:11 Zestril PO 20 mg DAILY CHANI Administration Metformin HCl 1,000 mg 11/21/18 08:00 11/21/18 18:28 Glucophage PO 1,000 mg BID-WM CHANI Administration Multivitamins 1 tab 11/20/18 09:00 11/21/18 08:13 Theragran PO Not Given DAILY CHANI Senna/Docusate Sodium 1 tab 11/19/18 21:00 11/21/18 20:25 Senokot S PO 1 tab BID CHANI Administration Tizanidine HCl 4 mg 11/19/18 12:49 11/20/18 07:48 Zanaflex PO 4 mg TID PRN Administration Muscle Spasm - Exam General Appearance: NAD Heart: RRR, no rubs Respiratory: CTAB, no ronchi Gastrointestinal: soft, non-tender, normal bowel sounds Extremities: no edema Hosp A/P (1) Hyponatremia Code(s): E87.1 - HYPO-OSMOLALITY AND HYPONATREMIA Status: Acute (2) HTN (hypertension) Code(s): I10 - ESSENTIAL (PRIMARY) HYPERTENSION Status: Acute (3) HLD (hyperlipidemia) Code(s): E78.5 - HYPERLIPIDEMIA, UNSPECIFIED Status: Acute (4) DM2 (diabetes mellitus, type 2) Status: Chronic Qualifiers: Chronic kidney disease stage: stage 3 (moderate) (5) Morbid obesity with BMI of 40.0-44.9, adult Code(s): E66.01 - MORBID (SEVERE) OBESITY DUE TO EXCESS CALORIES; Z68.41 - BODY MASS INDEX (BMI) 40.0-44.9, ADULT Status: Acute (6) Hypomagnesemia Code(s): E83.42 - HYPOMAGNESEMIA Status: Acute - Plan PT/OT, DVT proph w/SCDs ContAmlodipine/Lisinopril/Statins Resume Metformin/Glimepiride Cont sliding scale
[2018-11-22] MEDS: diphenhydrAMINE 25 MG CAP PO PRN (05:21)
--- NOTE | 2018-11-22 09:04 | PRG ---
DATE OF SERVICE: 11/22/2018 I saw Ms. Walden in our hospital room this morning. We got x-rays yesterday and they look reasonably good. She complains of continued back pain. She has dizziness when she stands up. Blood pressures have been in 160s. There is only one extremely mild fever recorded at 99.8 degrees Fahrenheit 2 days ago, otherwise she has been afebrile. There is good neurological function in the lower extremities. The incision looks perfect. Ms. Walden needs to mobilize with Physical therapy. Pain medication has resulted in an itch, for which she took Benadryl. It has also resulted in some constipation. She is passing gas, but she has had no bowel movement. She does not want me to give her a bottle of Mag citrate yet this morning. The incision does not need to be covered unless there is a risk for urine or feces getting on the wound. Otherwise, being open to air is reasonable. Ms. 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 This is a sensation she is having currently. It is not a sensation of imbalance, but rather vertigo and she is used to it from before her surgery. There is no positional headache that she has had since Wednesday. Ms. Walden would benefit from inpatient rehabilitation. We will start looking for a bed for her and make a transfer. Job ID: [id number]
[2018-11-22] MEDS: Glimepiride 1 MG TAB PO SCH (09:18)
[2018-11-22] MEDS: metFORMIN 500 MG TAB PO SCH ×2 (09:18→16:02)
[2018-11-22] MEDS: Multivit, Therapeutic 1 TAB PO SCH (09:19)
[2018-11-22] MEDS: Amlodipine 10 MG TAB PO SCH (09:19)
[2018-11-22] MEDS: Senokot S 8.6-50 MG TAB PO SCH ×2 (09:19→21:25)
[2018-11-22] MEDS: Lisinopril 20 MG TAB PO SCH (09:19)
[2018-11-22] MEDS: Ubidecarenone 50 MG CAP PO SCH (09:19)
[2018-11-22] MEDS: Dexamethasone 4 mg/ml Vial SLOW IVP SCH ×2 (09:20→21:26)
[2018-11-22] MEDS: Famotidine/PF 20 mg/2ml Vial SLOW IVP SCH ×3 (09:21→21:26)
[2018-11-22] MEDS ORDERED: HYDROcodone/Acetaminophen 10/325 mg Tablet PO PRN (11:18)
--- NOTE | 2018-11-22 15:43 | PDOC.HOSPP ---
- Subjective Encounter Date: 11/22/18 Encounter Time: 15:35 Subjective: f/u for general med mgmt s/p Lumbar laminectomies L1-L5. Pain improved and ambulated with PT. - Objective Vital Signs & Weight: Vital Signs (12 hours) Temp Pulse Resp BP BP Pulse Ox 11/22/18 11:52 98.2 F 86 16 163/81 H 98 11/22/18 09:19 95 162/84 H 11/22/18 07:17 98.3 F 95 16 159/83 H 96 11/22/18 03:44 98.2 F 95 18 164/84 H 95 Weight Weight 216 lb 0.848 oz I&O: 11/21/18 11/22/18 11/23/18 06:59 06:59 06:59 Intake Total 2230 2050 Output Total 600 950 Balance 1630 1100 Result Diagrams: 11/20/18 03:30 11/20/18 03:30 Additional Labs: Accuchecks 11/22/18 11/22/18 11/21/18 11:56 05:49 20:44 POC Glucose 146 H 144 H 174 H Laboratory Tests 11/18/18 11/19/18 04:45 07:54 Sodium 132 L 129 L Hospitalist ROS - Medication Medications: Active Medications Generic Name Dose Route Start Last Admin Trade Name Freq PRN Reason Stop Dose Admin Acetaminophen 650 mg 11/19/18 12:50 11/20/18 20:51 Tylenol PO 650 mg Q4H PRN Administration Headache/Fever or Mild Pain Amlodipine Besylate 10 mg 11/20/18 09:00 11/22/18 09:19 Norvasc PO 10 mg DAILY CHANI Administration Atorvastatin Calcium 40 mg 11/19/18 21:00 11/21/18 20:26 Lipitor PO 40 mg HS CHANI Administration Coenzyme Q10 200 mg 11/20/18 09:00 11/22/18 09:19 Coenzyme Q10 PO 200 mg DAILY CHANI Administration Dexamethasone 4 mg 11/22/18 09:00 11/22/18 09:20 Decadron SLOW IVP 4 mg BID CHANI Administration Diphenhydramine HCl 25 mg 11/20/18 13:44 11/22/18 05:21 Benadryl PO 25 mg Q3H PRN Administration Itching Famotidine 10 mg 11/20/18 21:00 11/22/18 09:21 Pepcid SLOW IVP 10 mg BID CHANI Administration Glimepiride 1 mg 11/21/18 08:00 11/22/18 09:18 Amaryl PO 1 mg QAM-WM CHANI Administration Sodium Chloride 1,000 mls @ 40 mls/hr 11/20/18 11:15 11/21/18 11:52 Normal Saline 0.9% IV 1,000 mls .Q24H CHANI Administration Fentanyl Citrate 2,000 mcg/ 100 mls @ 0 mls/hr 11/20/18 13:44 11/21/18 20:27 Sodium Chloride IV 100 mls INF PRN Administration Pain As Directed Insulin Human Regular 0 units 11/19/18 12:43 11/21/18 20:43 Humulin R SC 2 unit .MILD SLIDING SCALE PRN Administration Mild Correctional Scale Ketorolac Tromethamine 15 mg 11/20/18 13:44 11/21/18 08:16 Toradol IVP 11/23/18 13:45 15 mg Q6H PRN Administration Moderate Pain (4-6) Lisinopril 20 mg 11/20/18 09:00 11/22/18 09:19 Zestril PO 20 mg DAILY CHANI Administration Metformin HCl 1,000 mg 11/21/18 08:00 11/22/18 09:18 Glucophage PO 1,000 mg BID-WM CHANI Administration Multivitamins 1 tab 11/20/18 09:00 11/22/18 09:19 Theragran PO 1 tab DAILY CHANI Administration Senna/Docusate Sodium 1 tab 11/19/18 21:00 11/22/18 09:19 Senokot S PO 1 tab BID CHANI Administration Tizanidine HCl 4 mg 11/19/18 12:49 11/20/18 07:48 Zanaflex PO 4 mg TID PRN Administration Muscle Spasm - Exam General Appearance: NAD, awake alert Eye: PERRL, anicteric sclera ENT: normocephalic atraumatic, no oropharyngeal lesions Neck: supple, symmetric, no JVD, no thyromegaly, no lymphadenopathy Heart: RRR, no murmur, no gallops, no rubs, normal peripheral pulses Respiratory: CTAB, no wheezes, no rales, no ronchi, normal chest expansion Gastrointestinal: soft, non-tender, non-distended, normal bowel sounds, no palpable masses Extremities: no cyanosis, no clubbing, no edema Skin: normal turgor Neurological: cranial nerve grossly intact, no focal deficits, no new deficit Musculoskeletal: normal tone, generalized weakness Psychiatric: normal affect, A&O x 3 Hosp A/P (1) HTN (hypertension) Code(s): I10 - ESSENTIAL (PRIMARY) HYPERTENSION Status: Chronic Qualifiers: Hypertension type: essential hypertension Qualified Code(s): I10 - Essential (primary) hypertension Plan: Labile, d/c IVF's, continue Lisinopril/Amlodipine, titrate regimen to optimal response (2) Hypomagnesemia Code(s): E83.42 - HYPOMAGNESEMIA Status: Acute Plan: Mild, continue serial monitoring (3) Hyponatremia Code(s): E87.1 - HYPO-OSMOLALITY AND HYPONATREMIA Status: Acute Plan: Mild, continue supportive mgmt, Regular dietary intake (4) DM2 (diabetes mellitus, type 2) Status: Chronic Qualifiers: Chronic kidney disease stage: stage 3 (moderate) Plan: Continue Amaryl, Metformin and ISS - Plan PT/OT, adoption social worker, out of bed/ambulate, DVT proph w/SCDs Stable currently Continue PT/OT for mobilization Rehab screening Continue home BP regimen Saline lock IVF
[2018-11-22] MEDS: HYDROcodone/Acetaminophen 10/325 mg Tablet PO PRN ×2 (16:02→23:31)
[2018-11-22] MEDS: Insulin Regular 300 UNITS/3 ML VIAL SC PRN ×2 (18:18→21:36)
[2018-11-22] MEDS: Sodium Chloride 0.9% 1,000 ML IV SCH (19:57)
[2018-11-22] MEDS: Atorvastatin Calcium 40 MG TAB PO SCH (21:25)
[2018-11-23] MEDS: Insulin Regular 300 UNITS/3 ML VIAL SC PRN ×3 (06:28→22:46)
[2018-11-23] MEDS: Lisinopril 20 MG TAB PO SCH (09:50)
[2018-11-23] MEDS: metFORMIN 500 MG TAB PO SCH ×2 (09:50→16:57)
[2018-11-23] MEDS: Ubidecarenone 50 MG CAP PO SCH (09:50)
[2018-11-23] MEDS: Amlodipine 10 MG TAB PO SCH (09:51)
[2018-11-23] MEDS: Senokot S 8.6-50 MG TAB PO SCH ×2 (09:51→21:22)
[2018-11-23] MEDS: Glimepiride 1 MG TAB PO SCH (09:52)
[2018-11-23] MEDS: Famotidine/PF 20 mg/2ml Vial SLOW IVP SCH ×2 (09:53→21:22)
--- NOTE | 2018-11-23 09:54 | PRG ---
DATE OF SERVICE: I saw Hermila Walden in her hospital room this morning. She had two bowel movements yesterday and feels better. She is able to ambulate in the halls yesterday and she got out of bed and moved around 4-5 times. This is great progress from her admission. I still do not find any new neurological deficits in the lower extremities. Her vitals look stable to me. If Hermila Walden is a candidate for inpatient rehabilitation transfer can be made today. If she is not, then we need to transition her to oral pain medications in anticipation of discharge soon. Job ID: [id number]
[2018-11-23] MEDS: Multivit, Therapeutic 1 TAB PO SCH (10:02)
[2018-11-23] MEDS: Dexamethasone 4 mg/ml Vial SLOW IVP SCH ×2 (10:02→21:23)
[2018-11-23] MEDS ORDERED: traMADol HCl 50 MG TAB PO PRN (12:32)
[2018-11-23] MEDS ORDERED: Ibuprofen 200 MG TAB PO PRN (12:32)
--- NOTE | 2018-11-23 18:27 | PDOC.HOSPP ---
- Subjective Encounter Date: 11/23/18 Encounter Time: 09:00 Subjective: Patient seen and examined for med mngt. No fever or chills. Pain controlled on GAS TRUCK DRIVER. No new complaints. No overnight events - Objective Vital Signs & Weight: Vital Signs (12 hours) Temp Pulse Resp BP BP BP Pulse Ox 11/23/18 15:12 98.3 F 87 20 162/84 H 98 11/23/18 13:52 98.8 F 84 14 157/83 H 95 11/23/18 09:51 84 11/23/18 09:50 166/88 H 11/23/18 08:55 93 L 11/23/18 08:00 98.8 F 82 18 146/75 H 92 L Weight Weight 216 lb 0.848 oz I&O: 11/22/18 11/23/18 11/24/18 06:59 06:59 06:59 Intake Total 2050 1780 860 Output Total 950 Balance 1100 1780 860 Result Diagrams: 11/20/18 03:30 11/20/18 03:30 Additional Labs: Accuchecks 11/23/18 11/23/18 11/23/18 16:31 10:45 06:29 POC Glucose 189 H 148 H 156 H 11/22/18 21:13 POC Glucose 206 H Hospitalist ROS - Review of Systems Respiratory: denies: cough, dry, shortness of breath, hemoptysis, SOB with excertion, pleuritic pain, sputum, wheezing, other Cardiovascular: denies: chest pain, palpitations, orthopnea, paroxysmal noc. dyspnea, edema, light headedness, other - Medication Medications: Active Medications Generic Name Dose Route Start Last Admin Trade Name Freq PRN Reason Stop Dose Admin Acetaminophen 650 mg 11/19/18 12:50 11/20/18 20:51 Tylenol PO 650 mg Q4H PRN Administration Headache/Fever or Mild Pain Hydrocodone Bitart/Acetaminophen 2 tab 11/22/18 11:18 11/22/18 23:31 [place] 10/325 PO 2 tab Q4H PRN Administration Pain (5-10) Amlodipine Besylate 10 mg 11/20/18 09:00 11/23/18 09:51 Norvasc PO 10 mg DAILY CHANI Administration Atorvastatin Calcium 40 mg 11/19/18 21:00 11/22/18 21:25 Lipitor PO 40 mg HS CHANI Administration Coenzyme Q10 200 mg 11/20/18 09:00 11/23/18 09:50 Coenzyme Q10 PO 200 mg DAILY CHANI Administration Dexamethasone 4 mg 11/22/18 09:00 11/23/18 10:02 Decadron SLOW IVP 4 mg BID CHANI Administration Diphenhydramine HCl 25 mg 11/20/18 13:44 11/22/18 05:21 Benadryl PO 25 mg Q3H PRN Administration Itching Famotidine 10 mg 11/20/18 21:00 11/23/18 09:53 Pepcid SLOW IVP 10 mg BID CHANI Administration Glimepiride 1 mg 11/21/18 08:00 11/23/18 09:52 Amaryl PO 1 mg QAM-WM CHANI Administration Insulin Human Regular 0 units 11/19/18 12:43 11/23/18 16:58 Humulin R SC 2 unit .MILD SLIDING SCALE PRN Administration Mild Correctional Scale Lisinopril 20 mg 11/20/18 09:00 11/23/18 09:50 Zestril PO 20 mg DAILY CHANI Administration Metformin HCl 1,000 mg 11/21/18 08:00 11/23/18 16:57 Glucophage PO 1,000 mg BID-WM CHANI Administration Multivitamins 1 tab 11/20/18 09:00 11/23/18 10:02 Theragran PO 1 tab DAILY CHANI Administration Senna/Docusate Sodium 1 tab 11/19/18 21:00 11/23/18 09:51 Senokot S PO 1 tab BID CHANI Administration Tizanidine HCl 4 mg 11/19/18 12:49 11/20/18 07:48 Zanaflex PO 4 mg TID PRN Administration Muscle Spasm - Exam General Appearance: NAD Heart: RRR, no gallops Respiratory: CTAB, no rales Gastrointestinal: soft, non-tender, non-distended, normal bowel sounds Extremities: no edema Hosp A/P (1) Hyponatremia Code(s): E87.1 - HYPO-OSMOLALITY AND HYPONATREMIA Status: Acute (2) HTN (hypertension) Code(s): I10 - ESSENTIAL (PRIMARY) HYPERTENSION Status: Chronic Qualifiers: Hypertension type: essential hypertension Qualified Code(s): I10 - Essential (primary) hypertension (3) HLD (hyperlipidemia) Code(s): E78.5 - HYPERLIPIDEMIA, UNSPECIFIED Status: Acute (4) DM2 (diabetes mellitus, type 2) Status: Chronic Qualifiers: Chronic kidney disease stage: stage 3 (moderate) (5) Morbid obesity with BMI of 40.0-44.9, adult Code(s): E66.01 - MORBID (SEVERE) OBESITY DUE TO EXCESS CALORIES; Z68.41 - BODY MASS INDEX (BMI) 40.0-44.9, ADULT Status: Chronic (6) Hypomagnesemia Code(s): E83.42 - HYPOMAGNESEMIA Status: Acute - Plan DVT proph w/SCDs Cont sliding scale Cont Amlodipine/Lisinopril/Statins Resume Metformin/Glimepiride BMP in AM
[2018-11-23] MEDS: Atorvastatin Calcium 40 MG TAB PO SCH (21:22)
[2018-11-24 05:48] LABS: Platelet Count 490 thou/uL (130-400)
[2018-11-24 06:04] LABS: Anion Gap 12 mmol/L (10-20); BUN (Urea Nitrogen) 11 mg/dL (9.8-20.1); Calc. Creatinine Clearance 112 mL/min (70-130); Calcium 9.3 mg/dL (7.8-10.44); Carbon Dioxide 25 mmol/L (23-31); Chloride 98 mmol/L (98-107); Estimated GFR-MDRD 86; Glucose 146 mg/dL (83-110); Magnesium 1.5 mg/dL (1.6-2.6); Potassium 3.9 mmol/L (3.5-5.1); Sodium 131 mmol/L (136-145)
[2018-11-24] MEDS: HYDROcodone/Acetaminophen 10/325 mg Tablet PO PRN (06:30)
[2018-11-24] MEDS ORDERED: traMADol HCl 50 MG TAB PO PRN (07:34)
[2018-11-24] MEDS: Glimepiride 1 MG TAB PO SCH (08:04)
[2018-11-24] MEDS: Lisinopril 20 MG TAB PO SCH (08:04)
[2018-11-24] MEDS: Ubidecarenone 50 MG CAP PO SCH (08:04)
[2018-11-24] MEDS: metFORMIN 500 MG TAB PO SCH ×2 (08:05→16:49)
[2018-11-24] MEDS: Amlodipine 10 MG TAB PO SCH (08:06)
[2018-11-24] MEDS: Senokot S 8.6-50 MG TAB PO SCH (08:06)
[2018-11-24] MEDS: Famotidine/PF 20 mg/2ml Vial SLOW IVP SCH (08:06)
[2018-11-24] MEDS: Multivit, Therapeutic 1 TAB PO SCH (08:06)
--- NOTE | 2018-11-24 08:39 | PRG ---
DATE OF SERVICE: 11/24/2018 I saw Ms. Walden this morning in her hospital room. She is off her [employer] pump. She is resting comfortably. Vital signs have been stable. There is no new neurological deficit. Ms. Walden is ready to think about discharge. Her pain management doctor is Constantino Dunn at [facility]. His clinic has offered an appointment to help manage postop pain should that be necessary. Ms. Walden is doing well enough to benefit from inpatient rehabilitation. She can transfer at any time today. Job ID: [id number]
[2018-11-24] MEDS: Dexamethasone 4 mg/ml Vial SLOW IVP SCH (09:47)
[2018-11-24] MEDS: diphenhydrAMINE 25 MG CAP PO PRN (13:44)
[2018-11-24 16:12] VITALS: BP 161/81; TEMP 97.9
== END 2018-11-24 18:45 | DRG 552 ==
LOC: ERS 07:21 → SJJU 09:15
PROVIDERS: ADMIT Neurological Surgery; ATTEND Neurological Surgery
DX: M54.9 Dorsalgia, unspecified (principal); E87.1 Hypo-osmolality and hyponatremia; Z68.41 Body mass index [BMI] 40.0-44.9, adult; R50.9 Fever, unspecified; R51 Headache; E78.5 Hyperlipidemia, unspecified; E66.01 Morbid (severe) obesity due to excess calories; E83.42 Hypomagnesemia; I12.9 Hypertensive chronic kidney disease with stage 1 through stage 4 chronic kidney disease, or unspecified chronic kidney disease; N18.3 Chronic kidney disease, stage 3 (moderate); E78.00 Pure hypercholesterolemia, unspecified; H81.10 Benign paroxysmal vertigo, unspecified ear; F41.9 Anxiety disorder, unspecified; K59.00 Constipation, unspecified; Z96.653 Presence of artificial knee joint, bilateral; E11.22 Type 2 diabetes mellitus with diabetic chronic kidney disease; Z88.1 Allergy status to other antibiotic agents; Z88.8 Allergy status to other drugs, medicaments and biological substances; Z90.710 Acquired absence of both cervix and uterus; Z90.49 Acquired absence of other specified parts of digestive tract
CPT/HCPCS: 36415; 36416; 71045; 72100; 80048; 80053; 81001; 83735; 85014; 85018; 85025; 85049; 85652; 86141; 87040; 87086; 96361; 96365; 96375; J1100; J1200; J1815; J1885; J2270; J2405; J2765; J3010; J3475; J3490; Q0163; S0028